=== PATIENT | female | born 1980 | race African-American/Black ===

== ENCOUNTER 2016-08-21 16:14 | Emergency (ER) | payer BC ==
[2016-08-21 16:19] VITALS: TEMP 98.4; BMI 51.5
--- NOTE | 2016-08-21 16:40 | PDOC ---
History of Present Illness - History of Present Illness Initial Comments: 08/21/16 17:12 Patient is a 36 year old female accompanied by , with no significant medical hx, who is presenting to the ED with intermittent dizziness for several weeks that worsened today. The patient reports dizziness that worsens when she bends over or looks down. The patient states that it does not feel as if the room is spinning. Denies weakness, nausea, vomiting, pain, head trauma, recent trauma, and LOC. The patient reports she's been eating and drinking normally. PMD: Ananda Jordan MD Surgical Hx: cholecystectomy <Georgia Schaefer - Last Filed: 08/21/16 17:12> - General History Source: Patient Exam Limitations: No Limitations <Trang Braden - Last Filed: 08/22/16 17:10> - General Chief Complaint: Lightheaded Stated Complaint: DIZZINESS Time Seen by Provider: 08/21/16 16:38 Past History <Georgia Schaefer - Last Filed: 08/21/16 17:12> - Past Medical History Other medical history: PATIENT DENIES MEDICAL HX - Surgical History Abdominal Surgery: Yes Cholecystectomy: Yes - Psycho/Social/Smoking Cessation Hx Anxiety: No Suicidal Ideation: No Smoking Status: No Smoking History: Never smoked Number of Cigarettes Smoked Daily: 0 Hx Alcohol Use: Yes (OCCASIONALLY) Drug/Substance Use Hx: No Substance Use Type: None <Trang Braden - Last Filed: 08/22/16 17:10> - Past Medical History Allergies/Adverse Reactions: Allergies Allergy/AdvReac Type Severity Reaction Status Date / Time No Known Allergies Allergy Verified 08/21/16 16:19 Home Medications: Ambulatory Orders Guaifenesin/Dextromethorphan [Coricidin Hbp Softgel] 1 each PO BID PRN #30 capsule 08/22/16 Pseudoephedrine HCl [Sudafed -] 30 mg PO Q6H #28 tablet 08/22/16 Review of Systems - Review of Systems Comments:: 08/21/16 17:17 GENERAL/CONSTITUTIONAL: No: fever, chills, weakness, loss of appetite. HEAD, EYES, EARS, NOSE AND THROAT: No: change in vision, ear pain, discharge, sore throat, throat swelling. CARDIOVASCULAR: No: chest pain, lightheadedness, palpitations, syncope RESPIRATORY: No: cough, shortness of breath, wheezing, hemoptysis, stridor. GASTROINTESTINAL: No: nausea, vomiting, abdominal cramping, diarrhea, rectal bleeding, constipation. GENITOURINARY: No: dysuria, hematuria, frequency, urgency, flank pain. MUSCULOSKELET AL: No: back pain, neck pain, joint pain, muscle swelling or pain SKIN AND BREASTS: No: lesions, pallor, rash or easy bruising. NEUROLOGIC: Yes: dizziness. No: headache, vertigo, paresthesias, weakness ENDOCRINE: No: unexplained weight gain or loss HEMATOLOGIC/LYMPHATIC: No: anemia, easy bleeding, swelling nodes <Georgia Schaefer - Last Filed: 08/21/16 17:12> *Physical Exam - Vital Signs Last Vital Signs Temp Pulse Resp BP Pulse Ox 98.4 F 88 20 160/80 100 08/21/16 16:16 08/21/16 16:58 08/21/16 16:58 08/21/16 16:58 08/21/16 16:58 - Physical Exam Comments: 08/21/16 17:34 GENERAL: Obese. The patient is in no acute distress. HEAD: Normal with no signs of trauma. EYES: PERRLA, EOMI, sclera anicteric, conjunctiva clear. ENT: Ears normal, nares patent, oropharynx clear without exudates. Moist mucous membranes. NECK: Normal range of motion, supple without lymphadenopathy, JVD, or masses. LUNGS: Breath sounds equal, clear to auscultation bilaterally. No wheezes, and no crackles. HEART:Regular rate and rhythm, normal S1 and S2 without murmur, rub or gallop. ABDOMEN: Soft, nontender, normoactive bowel sounds. No guarding, no rebound. EXTREMITIES: Normal range of motion, no edema. No clubbing or cyanosis. No erythema, or tenderness. NEUROLOGICAL: Cranial nerves II through XII grossly intact. Normal speech. No focal neurological deficits. MUSCULOSKELETAL: Back non-tender to palpation, no CVA tenderness SKIN: Warm, Dry, normal turgor, no rashes or lesions noted. <Georgia Schaefer - Last Filed: 08/21/16 17:12> - Vital Signs Last Vital Signs Temp Pulse Resp BP Pulse Ox 98.4 F 83 18 142/83 97 08/21/16 16:16 08/21/16 16:16 08/21/16 16:16 08/21/16 16:16 08/21/16 16:16 <Trang Braden - Last Filed: 08/22/16 17:10> ED Treatment Course - LABORATORY CBC & Chemistry Diagram: 08/21/16 17:12 08/21/16 17:15 <Trang Braden - Last Filed: 08/22/16 17:10> Medical Decision Making - Medical Decision Making 08/21/16 16:39 A portion of this note was documented by scribe services under my direction. I have reviewed the details of the note, within reason, and agree with the documentation with the following case summary and management plan written by me. Nursing documentation reviewed and incorporated into medical decision making 08/21/16 18:42 This is a 36 yo F with no significant past medical history who presents to the ER with a complaint of dizziness Pt denies vertigo She denies fevers or chills She denies headache She denies head trauma Pt notes that her symptoms worsen when she bends forward No prior episodes like this Symptoms present for the past 2 - 3 weeks No focal weakness or numbness On examination: No nystagmus No focal weakness or numbness Mild facial pain with palpation DD: Dizziness due to sinusitis/sinus congestion, Anemia, dehydration, electrolyte Will do labs Will NOT do CT head Laboratory Tests 08/21/16 08/21/16 08/21/16 17:12 17:12 17:15 WBC 10.1 H Hgb 12.4 Hct 37.4 Plt Count 360 Neutrophils % 58.7 Lymphocytes % 34.4 D Sodium 138 Potassium 4.0 Chloride 105 Carbon Dioxide 24 BUN 13 Creatinine 0.6 Random Glucose 144 H Serum , Qual Negative Will discharge to home Will ask her to start Coracidin Will as her to stay hydrated Return to the ER for any other concerns or complaints Pt asked to follow up with PMD for re evaluation for Blood pressure, possible initiation of anti hypertensives 08/21/16 18:55 08/21/16 19:04 <Trang Braden - Last Filed: 08/22/16 17:10> *DC/Admit/Observation/Transfer - Attestations Scribe Attestion: 08/21/16 17:35 Documentation prepared by Georgia Schaefer, acting as emergency medical technician basic for Trang Braden MD. <Georgia Schaefer - Last Filed: 08/21/16 17:12> <Trang Braden - Last Filed: 08/22/16 17:10> Diagnosis at time of Disposition: Dizziness - Discharge Dispostion Disposition: HOME Condition at time of disposition: Stable - Prescriptions Prescriptions: Guaifenesin/Dextromethorphan [Coricidin Hbp Softgel] 1 each PO BID PRN #30 capsule PRN Reason: congestion Pseudoephedrine HCl [Sudafed -] 30 mg PO Q6H #28 tablet - Referrals Referrals: Ananda Jordan MD [Primary Care Provider] - Tarun Escobar MD [Staff Physician] - - Patient Instructions Printed Discharge Instructions: DI for Dizziness-Nonvertigo Additional Instructions: Thank you for coming in to the ER today Please stay hydrated Please try using Sudafed Please follow up with your primary care physician Return to the ER for new symptoms, any other concerns or complaints - Post Discharge Activity Work/School Note: Back to Work
[2016-08-21] MEDS ORDERED: SODIUM CHLORIDE 1,000 ML IV STA (16:42)
[2016-08-21 17:26] LABS: BASOPHIL 0.6 % (0-2.0); EOSINOPHIL 2.4 % (0-4.5); MCH 25.9 pg (25.7-33.7); MEAN CELL VOLUME 78.5 fl (80-96); MEAN PLT VOLUME 7.3 fl (7.5-11.1); NEUTROPHILS 58.7 % (42.8-82.8); PLATELET COUNT 360 K/MM3 (134-434); WHITE BLOOD COUNT 10.1 K/mm3 (4.0-10.0)
[2016-08-21 17:47] LABS: ALBUMIN 3.5 g/dl (3.4-5.0); ANION GAP 9 (8-16); BILIRUBIN,TOTAL 0.2 mg/dL (0.2-1.0); CALCIUM 8.7 mg/dL (8.5-10.1); CO2 24 mmol/L (21-32); CREATININE 0.6 mg/dL (0.55-1.02); GLUCOSE,RANDOM 144 mg/dL (74-106); SGOT/AST 20 U/L (15-37); SGPT/ALT 28 U/L (12-78); TOT PROT 7.5 g/dl (6.4-8.2)
[2016-08-21 17:48] LABS: ALK PHOS 96 U/L (45-117)
[2016-08-21 20:14] VITALS: BP 145/70; PULSE 89
--- NOTE | 2016-08-22 09:58 | EKG ---
Test Reason : Blood Pressure : / mmHG Vent. Rate : 081 BPM Atrial Rate : 081 BPM P-R Int : 170 ms QRS Dur : 080 ms QT Int : 356 ms P-R-T Axes : 033 -01 007 degrees QTc Int : 413 ms NORMAL SINUS RHYTHM MODERATE VOLTAGE CRITERIA FOR LVH, MAY BE NORMAL VARIANT WHEN COMPARED WITH ECG OF 17-MAR-2009 17:42, NO SIGNIFICANT CHANGE WAS FOUND Confirmed by ISABEL NAIR MD ([id number]) on 08/22/2016 9:58:10 AM Referred By: Confirmed By:ISABEL NAIR MD
== END 2016-08-21 20:13 | disposition home or self-care (01) ==
LOC: JER 16:14
DX: R42 Dizziness and giddiness (principal)
CPT/HCPCS: 36415; 80053; 84703; 85025; 93005; 93010; 99284-25

== ENCOUNTER 2018-02-01 13:31 | Emergency (ER) | payer BC ==
[2018-02-01 13:41] VITALS: BP 168/72; PULSE 82; TEMP 97.8; BMI 53.2
[2018-02-01] MEDS ORDERED: IBUPROFEN 600 MG TABLET (FP) PO ONE ×2 (14:07→14:13)
--- NOTE | 2018-02-01 14:32 | PDOC ---
History of Present Illness - General Chief Complaint: Injury Stated Complaint: FALL Time Seen by Provider: 02/01/18 13:58 History Source: Patient Exam Limitations: No Limitations - History of Present Illness Initial Comments: 02/01/18 14:28 37-year-old female presents ED status post mechanical fall 4 days ago complaining of right wrist pain. Patient states range of motion and has mild swelling to the area. Patient denies previous injury to the affected area or radiation of pain. Occurred: reports: other (4 days) Severity: reports: mild Pain Location: reports: upper extremity Method of Injury: Yes: fall Modifying Factors: improves with: None Associated Symptoms (Fall): denies symptoms Past History - Travel Traveled outside of the country in the last 30 days: No - Past Medical History Allergies/Adverse Reactions: Allergies Allergy/AdvReac Type Severity Reaction Status Date / Time No Known Allergies Allergy Verified 08/21/16 16:19 Home Medications: Ambulatory Orders NK [No Known Home Medication] 02/01/18 COPD: No DVT: No - Surgical History Abdominal Surgery: Yes Cholecystectomy: Yes - Immunization History Immunization Up to Date: Yes - Suicide/Smoking/Psychosocial Hx Smoking Status: No Smoking History: Smoker current status UNK Number of Cigarettes Smoked Daily: 0 Hx Alcohol Use: No Drug/Substance Use Hx: No Substance Use Type: None Patient Lives Alone: No Lives with/in: spouse/SO Review of Systems - Review of Systems Able to Perform ROS?: Yes Musculoskeletal: Yes: Joint Pain (right wrist), Joint Swelling Integumentary: No: Symptoms Reported Neurological: No: Symptoms reported *Physical Exam - Vital Signs Last Vital Signs Temp Pulse Resp BP Pulse Ox 97.8 F 82 17 168/72 98 02/01/18 13:39 02/01/18 13:39 02/01/18 13:39 02/01/18 13:39 02/01/18 13:39 - Physical Exam General Appearance: Yes: Nourished, Appropriately Dressed. No: Apparent Distress Extremity: positive: Normal Inspection, Tender (over the base of right first digit and distal aspect of radius) Integumentary: positive: Normal Color, Warm, Moist, Swelling (mild over dorsal aspect of right wrist) Neurologic: positive: Motor Strength 5/5 (right hand grasp) ED Treatment Course - RADIOLOGY Radiology Studies Ordered: Category Date Time Status WRIST W/HAND-RIGHT* [RAD] Stat Radiology 02/01/18 14:07 Ordered - Medications Given in the ED: ED Medications Discontinued Medications Generic Name Dose Route Start Last Admin Trade Name Audrey PRN Reason Stop Dose Admin Ibuprofen 600 mg 02/01/18 14:07 02/01/18 14:14 Motrin - PO 02/01/18 14:08 600 mg ONCE ONE Administration Medical Decision Making - Medical Decision Making 02/01/18 14:04 Patient status post fall. Patient with tenderness over the right wrist. Patient ordered for x-ray along with Motrin 02/01/18 14:34 x-ray negative for acute findings. Patient be given an vale wrap with admissions apply ice and take Motrin. patient was given referral for orthopedist if symptoms continue greater than 5- 7 days. 02/01/18 14:38 *DC/Admit/Observation/Transfer Diagnosis at time of Disposition: Sprain of wrist, right - Discharge Dispostion Disposition: HOME Condition at time of disposition: Good - Referrals Referrals: Tarun Newby MD [Staff Physician] - - Patient Instructions Printed Discharge Instructions: DI for Wrist Sprain Additional Instructions: Wear an vale wrap to the day but remove at night. Please take Motrin 600 mg every 8 hours for the next few days and apply ice effected area. If symptoms continue greater than 5-7 days please follow up with referred orthopedist. - Post Discharge Activity
== END 2018-02-01 14:46 | disposition home or self-care (01) ==
LOC: JERFT 13:31
DX: S63.501A Unspecified sprain of right wrist, initial encounter (principal); W19.XXXA Unspecified fall, initial encounter; Y93.89 Activity, other specified; Y92.89 Other specified places as the place of occurrence of the external cause; Y99.8 Other external cause status
CPT/HCPCS: 73110-TC-RT-FY; 73130-TC-RT-FY; 99281-25

== ENCOUNTER 2018-07-12 11:29 | Emergency (ER) | payer BC ==
--- NOTE | 2018-07-12 11:35 | PDOC ---
History of Present Illness - General Chief Complaint: Sore Throat Stated Complaint: SORE THROAT AND COUGH FOR 3 WEEKS HAS TAKEN AUG Time Seen by Provider: 07/12/18 11:35 - History of Present Illness Initial Comments: 38yo F with PMH of morbid obesity presenting with cough. Patient states she started feeling ill three weeks ago. She had fevers, chills, cough, sinus congestion, sore throat, and post-nasal drip prompting her to see her primary care physician who prescribed her a ten-day course of Augmentin and prednisone. Patient states she did feel better after receiving the antibiotics, but started feeling worse about a week ago with worsening cough, intermittent sore throat, and chills. She measured her temperature at home and it was 99F. Patient has taken [id number] robitussin and throat lozenges with minimal relief. She has also used flonase which has helped her nasal congestion. Patient's mother is having surgery upstairs and patient decided to come to the ED for evaluation. Denies shortness of breath or chest pain. PCP: Dr. Jordan Past History - Past Medical History Allergies/Adverse Reactions: Allergies Allergy/AdvReac Type Severity Reaction Status Date / Time No Known Allergies Allergy Verified 08/21/16 16:19 Home Medications: Ambulatory Orders Benzonatate [Tessalon Pearls -] 100 mg PO TID #90 capsule 07/12/18 Ibuprofen [Motrin -] 600 mg PO QID #28 tablet 07/12/18 COPD: No DVT: No - Surgical History Abdominal Surgery: Yes Cholecystectomy: Yes - Immunization History Immunization Up to Date: Yes - Suicide/Smoking/Psychosocial Hx Smoking Status: No Smoking History: Smoker current status UNK Number of Cigarettes Smoked Daily: 0 Hx Alcohol Use: No Drug/Substance Use Hx: No Substance Use Type: None Review of Systems - Review of Systems Comments:: Constitutional: +fever, +chills HEENT: +throat pain, no dysphagia Cardiovascular: no chest pain, no palpitations Respiratory: +cough, no shortness of breath Gastrointestinal: no abdominal pain, no nausea Genitourinary: no dysuria, no frequency Musculoskeletal: no myalgia, no arthralgia Skin: no rash, no itching Neurologic: +headache, no dizziness *Physical Exam - Physical Exam Comments: General: Awake, alert, and fully oriented, in no acute distress Head: No signs of trauma Eyes: EOMI, sclera anicteric ENT: Moist mucus membranes, uvula midline, non-erythemetous throat Neck: Normal ROM, supple Lungs: Lungs clear, Normal breath sounds Cardio: Regular rhythm, S1 and S2 present Abdomen: Soft, nontender. No guarding, no rebound, no masses Extremities: Normal range of motion, Distal pulses present SKIN: Warm, Dry, normal turgor Neurologic: Cranial nerves II through XII grossly intact. Normal speech Medical Decision Making - Medical Decision Making 38yo F with PMH of morbid obesity presenting with cough. Patient states she started feeling ill three weeks ago. DDX including but not limited to viral URI, strep throat, influenza, pneumonia, acute bronchitis CXR ordered Patient declined test and will sign waiver 07/12/18 12:10 Patient declined PA/lateral as she refuses to take the elevator. Per hospital policy, patient cannot go down the stairs for radiology. Portable XR ordered 07/12/18 12:42 CXR negative for acute pathology (my impression) Low suspicion for pneumonia. Symptoms consistent with viral URI/ acute bronchitis. Patient to be discharged with motrin and tessalon perles 07/12/18 13:21 *DC/Admit/Observation/Transfer Diagnosis at time of Disposition: Bronchitis - Discharge Dispostion Disposition: HOME Condition at time of disposition: Stable - Prescriptions Prescriptions: Benzonatate [Tessalon Pearls -] 100 mg PO TID #90 capsule Ibuprofen [Motrin -] 600 mg PO QID #28 tablet - Referrals - Patient Instructions Printed Discharge Instructions: DI for Acute Bronchitis Additional Instructions: You came into the ED for a cough. We performed an xray which was normal. Follow-up with your primary care doctor this week to discuss this ED visit and to further evaluate your cough. Your care is not complete until you do so. Call and make an appointment. Prescriptions sent to your pharmacy. Take as instructed. Call for emergency medical services or go to the emergency room right away if any of the following occurs: Difficulty breathing, unrelieved by medications Tightness in chest, unrelieved by medications If you think you have an emergency, call for medical help right away. - Post Discharge Activity
[2018-07-12 11:39] VITALS: BP 151/91; PULSE 69; TEMP 99; BMI 51.9
--- NOTE | 2018-07-12 12:59 | PDOC ---
Attending Attestation - Resident Resident Name: Keena Altamirano - ED Attending Attestation I have performed the following: I have examined & evaluated the patient, The case was reviewed & discussed with the resident, I agree w/resident's findings & plan, Exceptions are as noted - HPI HPI: 07/12/18 12:54 38 year old female c/ hx of obesity, prior PNA p/w cough x 3 weeks. ~3 weeks ago, c/o sore throat, fever to 103, cough. Was seen at her PMD's office at that time and given prescription for augmentin 10 day course. Pt completed the course and reported improvement in symptoms, but no resolution. Approx 1 week ago, symptoms worsened again including sore throat, tactile fevers , and dry cough. + sick contact with daughter with URI. No chest pain, SOB, nausea, vomiting, diarrhea, dysuria. - Physicial Exam PE: 07/12/18 12:55 GENERAL: Awake, alert, and fully oriented, in no acute distress HEAD: No signs of trauma EYES: EOMI, sclera anicteric, conjunctiva clear ENT: Auricles normal inspection, hearing grossly normal, nares patent, oropharynx clear without exudates. Moist mucosa NECK: Normal ROM, supple, LUNGS: Breath sounds equal, clear to auscultation bilaterally. No wheezes, and no crackles HEART: Regular rate and rhythm, normal S1 and S2, no murmurs, rubs or gallops EXTREMITIES: Normal range of motion, no edema. No clubbing or cyanosis. No cords, erythema, or tenderness NEUROLOGICAL: Cranial nerves II through XII grossly intact. Normal speech, normal gait SKIN: Warm, Dry, normal turgor, no rashes or lesions noted. - Medical Decision Making 07/12/18 12:56 Vital Signs Temp Pulse Resp BP Pulse Ox 99 F 69 18 151/91 100 07/12/18 11:30 07/12/18 11:30 07/12/18 11:30 07/12/18 11:30 07/12/18 11:30 38 year old female presents with cough. Oropharynx is clear and unlikely to be strep from appearance. No fevers here. Pt is here in ED because she requested checkup while she waits for her mother to have surgery. She likely has viral syndrome. However, given 3 weeks of cough, will r/o PNA. If chest xray is negative, will give supportive care and reassurance and follow up with PMD. 07/12/18 13:09 Chest xray reviewed by me, pending official radiology read. No infiltrates. No acute findings.
== END 2018-07-12 13:27 | disposition home or self-care (01) ==
LOC: FER 11:29
DX: J40 Bronchitis, not specified as acute or chronic (principal)
CPT/HCPCS: 71045-TC-FY; 99282-25

== ENCOUNTER 2018-12-12 20:20 | Emergency (ER) | payer BC ==
--- NOTE | 2018-12-12 20:48 | PDOC ---
Rapid Medical Evaluation Time Seen by Provider: 12/12/18 20:45 Medical Evaluation: Allergies Allergy/AdvReac Type Severity Reaction Status Date / Time No Known Allergies Allergy Verified 08/21/16 16:19 12/12/18 20:45 HPI:Cough which progressed to wheezing and chills over the last 3 weeks. PCP sent pt for CXR Katherine Norman PE: No gross deficits; CTA slight limited secondary to body habits ORDERS: CXR Discharge Disposition - Diagnosis Cough - Referrals - Patient Instructions - Post Discharge Activity
[2018-12-12 20:50] VITALS: BP 149/85; PULSE 80; TEMP 98.1; BMI 49.9
--- NOTE | 2018-12-12 21:42 | PDOC ---
History of Present Illness - General Chief Complaint: Respiratory Stated Complaint: COUGHING X 3 WEEKS Time Seen by Provider: 12/12/18 20:45 - History of Present Illness Initial Comments: 12/12/18 21:38 CHIEF COMPLAINT: cough x 2-3 weeks HISTORY OF PRESENT ILLNESS: 38 yo F presents to [facility] with cough x 2-3 weeks. Patient reports she has been seen by her PCP Dr. Jordan who prescribed her antibiotics, albuterol, and flonase but her symptoms have not improved. She reports that now she feels difficulty breathing when she coughs. Denies fever, chills, vomiting, diarrhea. No recent travel or sick contacts. PAST MEDICAL HISTORY: Denies past medical history FAMILY HISTORY: Denies SOCIAL HISTORY:Denies tobacco, alcohol, illicit drug use. SURGICAL HISTORY: Denies ALLERGIES: No known drug allergies REVIEW OF SYSTEMS General/Constitutional: Denies fever or chills. Denies weakness, weight change. HEENT: Denies change in vision. Denies ear pain or discharge. Denies sore throat. Cardiovascular: Denies chest pain or shortness of breath. Respiratory: Cough, wheezing. Gastrointestinal: Denies nausea, vomiting, diarrhea or constipation. Denies rectal bleeding. Genitourinary: Denies dysuria, frequency, or change in urination. Musculoskeletal: Denies joint or muscle swelling or pain. Denies neck or back pain. Skin and breasts: Denies rash or easy bruising. Neurologic: Denies headache, vertigo, loss of consciousness, or loss of sensation. PHYSICAL EXAM General Appearance: Well-appearing, appropriately dressed. No apparent distress. HEENT: EOMI, PERRLA, normal ENT inspection, normal voice, TMs normal, pharynx normal. No conjunctival pallor. No photophobia, scleral icterus. Neck: Supple. Trachea midline. No tenderness, rigidity, carotid bruit, stridor , lymphadenopathy, or thyromegaly. Respiratory/Chest: Lungs CTAB. No shortness of breath, chest tenderness, respiratory distress, accessory muscle use. No crackles, rales, rhonchi, stridor , wheezing, dullness Cardiovascular: RRR. S1, S2. No JVD, murmur, bradycardia, tachycardia. Vascular Pulses: Dorsalis-Pedis (R): 2+, Dorsalis-Pedis (L): 2+ Gastrointestinal/Abdominal: Normal bowel sounds. Abdomen soft, non-distended. No tenderness or rebound tenderness. No organomegaly, pulsatile mass, guarding , hernia, hepatomegaly, splenomegaly. Lymphatic: No adenopathy, tenderness. Musculoskeletal/Extremities: Normal inspection. FROM of all extremities, normal capillary refill. Pelvis Stable. No CVA tenderness. No tenderness to extremities, pedal edema, swelling, erythema or deformity. Integumentary: Appropriate color, dry, warm. No cyanosis, erythema, jaundice or rash Neurologic: recruitment officer II-XII intact. Fully oriented, alert. Appropriate mood/affect. Motor strength 5/5. No appreciable EOM palsy, facial droop or sensory deficit. Past History - Past Medical History Allergies/Adverse Reactions: Allergies Allergy/AdvReac Type Severity Reaction Status Date / Time No Known Allergies Allergy Verified 08/21/16 16:19 Home Medications: Ambulatory Orders Clarithromycin [Biaxin -] 500 mg PO BID #14 tablet 12/12/18 COPD: No DVT: No - Surgical History Abdominal Surgery: Yes Cholecystectomy: Yes - Immunization History Immunization Up to Date: Yes - Suicide/Smoking/Psychosocial Hx Smoking Status: No Smoking History: Never smoked Number of Cigarettes Smoked Daily: 0 Hx Alcohol Use: No Drug/Substance Use Hx: No Substance Use Type: None *Physical Exam - Vital Signs Last Vital Signs Temp Pulse Resp BP Pulse Ox 98.1 F 80 20 149/85 100 12/12/18 20:45 12/12/18 20:45 12/12/18 20:45 12/12/18 20:45 12/12/18 20:45 Medical Decision Making - Medical Decision Making 12/12/18 21:55 38 yo F presents to [facility] with cough x 2-3 weeks. -cxr 12/12/18 22:03 CXR unchanged from prior taken 2 weeks ago. Will rx clarithromycin for bronchitis. *DC/Admit/Observation/Transfer Diagnosis at time of Disposition: Cough, Bronchitis - Discharge Dispostion Disposition: HOME Condition at time of disposition: Stable - Prescriptions Prescriptions: Clarithromycin [Biaxin -] 500 mg PO BID #14 tablet - Referrals - Patient Instructions Printed Discharge Instructions: DI for Acute Bronchitis - Post Discharge Activity Forms/Work/School Notes: Back to Work
== END 2018-12-12 22:14 | disposition home or self-care (01) ==
LOC: JERFT 20:20
DX: J40 Bronchitis, not specified as acute or chronic (principal); R05 Cough
CPT/HCPCS: 71046-TC-FY; 99281-25

== ENCOUNTER 2021-04-26 09:23 | Emergency (ER) | payer BC ==
[2021-04-26 09:42] VITALS: BP 127/80; PULSE 85; TEMP 98; BMI 46.5
[2021-04-29 01:06] LABS: SARS-CoV-2 NAA Detected (Not Detected)
== END 2021-04-26 10:18 | disposition home or self-care (01) ==
LOC: JER 09:23
DX: J11.1 Influenza due to unidentified influenza virus with other respiratory manifestations (principal)
CPT/HCPCS: 99283-25; C9803; U0003; U0005